=== PATIENT | male | born 1995 | race Caucasian/White ===

== ENCOUNTER 2018-04-10 12:32 | Emergency (ER) | payer SELFPAY ==
[~2018-04-10] VITALS: Ht 177.8 cm; Wt 75.7 kg
[2018-04-10 12:38] VITALS: BP 128/81
[2018-04-10] MEDS ORDERED: MAALOX/HYOSCYAMINE/LIDOCAINE 45 ML BTL ONE (13:28)
[2018-04-10] MEDS ORDERED: MAALOX/HYOSCYAMINE/LIDOCAINE 45 ML BTL PO ONE (13:30)
== END 2018-04-10 14:43 | disposition home or self-care (01) ==
LOC: ED 14:37
DX: K20.9 Esophagitis, unspecified (principal); F17.200 Nicotine dependence, unspecified, uncomplicated
CPT/HCPCS: 74220; 99283

== ENCOUNTER 2020-12-05 10:38 | Emergency (ER) | payer SELFPAY ==
[~2020-12-05] VITALS: Ht 177.8 cm; Wt 73.2 kg
--- NOTE | 2020-12-05 11:10 | NUR ---
LEFT GROIN/FLANBK PAIN WITH DIFFICULTING URINATING X 4 HOURS NO ABD MEDICAL HX NO HX OF KIDNEY STONES
[2020-12-05] MEDS ORDERED: ONDANSETRON 2MG/ML, 2ML ONE (11:15)
[2020-12-05] MEDS ORDERED: MORPHINE SULFATE 4 MG/ML, 1ML ONE (11:15)
[2020-12-05] MEDS ORDERED: KETOROLAC 30 MG/1 ML ONE (11:15)
[2020-12-05 11:23] LABS: MEAN CORPUSCULAR HEMOGLOBIN 30.2 pg (27.5-34.5); MEAN CORPUSCULAR HGB CONC 34.3 g/dL (33.2-36.2); MEAN PLATELET VOLUME 7.8 fL (7.4-10.4); PLATELET COUNT 243 x10^3/uL (130-400); RED BLOOD COUNT 5.86 x10^6/uL (4.38-5.82); RED CELL DISTRIBUTION WIDTH 12.6 % (9.4-14.8)
[2020-12-05 11:26] LABS: MD YES
--- NOTE | 2020-12-05 11:27 | NUR ---
PIV PLACED-MEDICATED PER EMAR FOR LEFT FLANK PAIN AT 10/10 CC [facility] SENT
[2020-12-05] MEDS ORDERED: KETOROLAC 30 MG/1 ML IVPush ONE (11:30)
[2020-12-05] MEDS ORDERED: SODIUM CHLORIDE FLUSH 10ML SYR IVF ONE (11:30)
[2020-12-05] MEDS ORDERED: ONDANSETRON 2MG/ML, 2ML IVPush ONE (11:30)
[2020-12-05] MEDS ORDERED: MORPHINE SULFATE 4 MG/ML, 1ML IVPush PRN (11:30)
[2020-12-05 11:40] LABS: ALBUMIN 4.9 g/dL (3.4-5.0); ANION GAP 7 mmol/L (5-15); CALCIUM 9.8 mg/dL (8.5-10.1); CHLORIDE 108 mmol/L (98-107)
[2020-12-05 11:44] LABS: MICROSCOPIC AUTO
[2020-12-05 11:45] LABS: ALANINE AMINOTRANSFERASE 25 U/L (12-78); ALKALINE PHOSPHATASE 63 U/L (45-117); BILIRUBIN,TOTAL 1.6 mg/dL (0.2-1.0); CREATININE 1.41 mg/dL (0.7-1.3); TOTAL PROTEIN 8.7 g/dL (6.4-8.2)
--- NOTE | 2020-12-05 11:45 | NUR ---
TO CT SCAN
[2020-12-05 11:48] LABS: <PLATELET ESTIMATE> ADEQUATE; <PLT MORPHOLOGY> NORMAL PLT MORPH; <RBC MORPHOLOGY> NORMAL; BAND#(MANUAL) 0.25 x10^3/uL; BANDS%(MANUAL) 1 % (0-7); LYMPH#(MANUAL) 1.24 x10^3/uL (1-3.4); LYMPHS% (MANUAL) 5 % (22-44); MONOS#(MANUAL) 1.98 x10^3/uL (0.3-2.7); MONOS% (MANUAL) 8 % (2-9); SEG#(MANUAL) 21.24 x10^3/uL (1.8-6.8); SEGS% (MANUAL) 86 % (42-75)
--- NOTE | 2020-12-05 12:25 | NUR ---
PAIN IMPROVED TO 0/10 ALL TESTING REVIEWED-PLACED UP FOR RECHECK
[2020-12-05 12:53] VITALS: BP 119/70
== END 2020-12-05 12:55 | disposition home or self-care (01) ==
LOC: ED 12:40
DX: D72.829 Elevated white blood cell count, unspecified (principal); N20.1 Calculus of ureter; R10.32 Left lower quadrant pain; R11.2 Nausea with vomiting, unspecified
CPT/HCPCS: 36415; 74176; 80053; 81001; 85025; 87086; 96374; 96375; 99284; J1885; J2270; J2405